=== PATIENT | female | born 1960 | race Caucasian/White ===

== ENCOUNTER 2018-10-15 12:22 | Inpatient (IN) | payer OTHER, SELFPAY ==
[2018-10-02 12:28] VITALS: BMI 29.8
[2018-10-15] MEDS: LACTATED RINGERS 1,000 ML 42 ML IV (12:45)
[2018-10-15 12:53] VITALS: BP 103/65; PULSE 59; RESP 16; TEMP 36.4; O2SAT 100; BMI 28.2
--- NOTE | 2018-10-15 13:20 | SUR.PREOP ---
pt reports has numbness and tingling in the left hand-chronic.
--- NOTE | 2018-10-15 15:14 | SUR.PREOP ---
pt discharge to home at this time. per dr. Thacker surgery will be rescheduled for another time when pacemaker rep available. iv dc'd and intact. pt tolerated well. per Dr. Thacker, pt instructed ok to resume warfarin and plavix this evening. pt ambulated out of facility with family in stable condition.
--- NOTE | 2018-10-15 15:34 | P.PN_ITS ---
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 I discussed with patient and she understands. She will be discharged today and re-scheduled for 10/28/18.
--- NOTE | 2018-10-15 16:14 | SUR.PHASEII ---
Time out per Brittany Lofton RN
== END 2018-10-15 15:14 | disposition home or self-care (01) | DRG 951 ==
PROVIDERS: Admitting Provider Orthopaedic Surgery Orthopaedic Surgery of the Spine; PCP Nurse Practitioner Family; Visit Provider Orthopaedic Surgery Orthopaedic Surgery of the Spine
DX: Z53.8 Procedure and treatment not carried out for other reasons (principal); M48.02 Spinal stenosis, cervical region

== ENCOUNTER 2018-10-28 08:48 | Inpatient (IN) | payer OTHER, MEDICAID, SELFPAY ==
[2018-10-21 12:21] VITALS: BMI 29.8
[2018-10-28] VITALS (19 sets, daily range): BP systolic 106–153; BP diastolic 58–91; PULSE 56–79; RESP 10–92; TEMP 36.3–36.8; O2SAT 92–100; BMI 29.9
--- NOTE | 2018-10-28 | DI.RAD.S_ITS ---
PROCEDURE: XR CERVICAL SPINE 2V OR 3V INDICATIONS: C5-6, C6-7 ACDF TECHNIQUE: 3 fluoroscopic intraoperative view(s) of the cervical spine were acquired. COMPARISON: [facility], CT, CT CERVICAL SPINE WITHOUT CONTRAST, 05/29/2017, 10:12. [facility], CR, XR CERVICAL SPINE 2 OR 3 VIEWS, 07/18/2018, 13:56. [facility], RF, CERVICAL FACET, 02/05/2018, 8:20. FINDINGS: Bones: C5-C7 ACDF is in the expected position. No fracture or dislocation seen. Post median sternotomy. Soft tissues: Soft tissues are unremarkable. Endotracheal tube is in place. Left cardiac pacemaker and right apex surgical clip. IMPRESSION: Expected appearance of the C5-C7 ACDF. Dictated by: Wilder Mike M.D. on 10/28/2018 at 15:50 Approved by: Wilder Mike M.D. on 10/28/2018 at 15:56
[2018-10-28 11:10] LABS: INR 1.2 (0.9-1.3); Prothrombin Time 13.5 SECONDS (10.1-12.7)
[2018-10-28] MEDS: LACTATED RINGERS 1,000 ML 42 ML IV ×2 (11:55→15:43)
--- NOTE | 2018-10-28 12:05 | PM.PREOP ---
Pre-operative Note Interval Note History & Physical reviewed/Exam performed by Physician: Yes Changes to H&P: No
[2018-10-28] MEDS: CEFAZOLIN 2 GM/100 ML FROZ.PIGGY IV ×2 (13:06→21:27)
--- NOTE | 2018-10-28 13:55 | SUR.OPER ---
Supine on padded OR bed, head on pillow, arms padded and tucked at side, legs uncrossed, safety belt at thigh, tape over blanket over lower legs . tape from shoulders to foot of bed to provide traction to lower shoulders away from neck. gel doughnut under neck
--- NOTE | 2018-10-28 15:01 | PM.OP.1 ---
Operative Date/Time/Diagnoses Date of procedure: 10/28/18 Time of procedure: 13:01 Pre-op diagnosis: 1. C5-6, C6-7 spinal stenosis 2. C5-6, C6-7 spondylosis with radiculopathy Post-op diagnosis: same Procedure & Clinicians Procedure: 1. C5-6 C6-7 anterior cervical diskectomy and fusion 2. C5-6 C6-7 anterior interbody cage placement 3. C5-6 C6-7 anterior instrumentation with plate and screw placement in C5-C6 and C7 vertebrae 4. Utilization of microsurgical technique and operating microscope Same procedure as scheduled: Yes Indications: Patient has been having chronic neck pain and worsening cervical radiculopathy. Patient failed multiple conservative management with worsening pain weakness and numbness in her upper extremity. Patient has been having difficulty performing activity of daily living. After discussing risks benefits of treatment options, patient elected proceed with surgery. Surgeon: Narcisa Thacker Water Taxi Boat Mate: Arlene Clark'Brien Click Yes if Unassisted: No Anesthesia Type: General Operative Notes Closure Type: primary Specimen(s): none sent Prosthetic devices, grafts, tissues, transplants, or devices: Globus extend plate, PEEK cages Estimated Blood Loss (mL): 20 Blood products transfused: none Procedure in detail: Patient was seen in the preoperative area. Risks and benefits of the surgery was discussed with the patient. Operative consent was obtained and placed in the chart. Patient was then taken to the operative room. Prophylactic antibiotic was given less than 0.5 hr prior to skin incision. General anesthesia was administered. Patient was placed into a supine position on her radiolucent table. Bilateral shoulders were taped down to allow proper C-arm imaging. Anterior cervical area was prepped and draped in a sterile fashion. Time-out was performed at this time. Using lateral C-arm imaging, the level between C5 and C7 was identified and marked on patient's neck. A oblique incision from midline towards medial border of sternocleidomastoid muscle was made. The platysma muscle was incised in line with skin incision. Metzenbaum scissor was used to develop the plane between the medial border of sternocleidomastoid d and the strap muscles medially. The carotid sheath and its contents were identified and protected behind the hand-held retractor during the entire case. The plane between the carotid sheath and strap muscles was developed with Metzenbaum scissors. Dissection was made down to the level of the anterior cervical fascia. Longus colli muscle was incised on the anterior aspect of vertebral bodies bilaterally from C5-C7. Spinal needle was placed into the C5-6 disc space and confirmed with lateral C-arm imaging. Using microsurgical technique and operative microscope, anterior cervical diskectomy was performed at C5-6 and C6-7 level. This was done by removing the disc material, removing the anterior and posterior osteophytes posterior longitudinal ligaments along with performing bilateral foraminotomies at both levels. Patient was found to have severe central and foraminal stenosis at both levels. Patient's stenosis was fully decompressed after decompression was completed. After the diskectomy was completed, 2 anterior interbody cages were obtained. The cages were packed with globus via cell bone grafting material. One cage each along with the bone grafting material was then packed into the interbody spaces from C5-C7 with one cage into each interbody level. After the cages were placed, the anterior cervical plate was stabilized to the C5-C7 vertebrae using 2 screws at each each level. Total 6 screws were placed. After confirming placement of the hardware with AP and lateral C-arm imaging, the screws were locked into the plate using the locking mechanism and torque limiting screwdriver. After the hardware was placed and confirmed with AP and lateral C-arm imaging, the wound was irrigated with sterile normal saline. The platysma muscle and the subcutaneous tissue was closed with 2-0 Vicryl. The skin was closed with 4-0Monocryl and Steri-Strips. Patient tolerated the procedure well. Patient was transferred recovery room in stable condition. There were no complications. Complications: none Condition: stable Disposition: PACU Plan for aftercare: Admit to inpatient hospital
--- NOTE | 2018-10-28 15:04 | P.OP_ITS ---
Operative Date/Time/Diagnoses Date of procedure: 10/28/18 Time of procedure: 13:01 Pre-op diagnosis: 1. C5-6, C6-7 spinal stenosis 2. C5-6, C6-7 spondylosis with radiculopathy Post-op diagnosis: same Procedure & Clinicians Procedure: 1. C5-6 C6-7 anterior cervical diskectomy and fusion 2. C5-6 C6-7 anterior interbody cage placement 3. C5-6 C6-7 anterior instrumentation with plate and screw placement in C5-C6 and C7 vertebrae 4. Utilization of microsurgical technique and operating microscope Same procedure as scheduled: Yes Indications: Patient has been having chronic neck pain and worsening cervical radiculopathy. Patient failed multiple conservative management with worsening pain weakness and numbness in her upper extremity. Patient has been having difficulty performing activity of daily living. After discussing risks benefits of treatment options, patient elected proceed with surgery. Surgeon: Narcisa Thacker Respiratory Practitioner: Arlene Clark'Brien Click Yes if Unassisted: No Anesthesia Type: General Operative Notes Closure Type: primary Specimen(s): none sent Prosthetic devices, grafts, tissues, transplants, or devices: Globus extend plate, PEEK cages Estimated Blood Loss (mL): 20 Blood products transfused: none Procedure in detail: Patient was seen in the preoperative area. Risks and benefits of the surgery was discussed with the patient. Operative consent was obtained and placed in the chart. Patient was then taken to the operative room. Prophylactic antibiotic was given less than 0.5 hr prior to skin incision. General anesthesia was administered. Patient was placed into a supine position on her radiolucent table. Bilateral shoulders were taped down to allow proper C- arm imaging. Anterior cervical area was prepped and draped in a sterile fashion. Time-out was performed at this time. Using lateral C-arm imaging, the level between C5 and C7 was identified and marked on patient's neck. A oblique incision from midline towards medial border of sternocleidomastoid muscle was made. The platysma muscle was incised in line with skin incision. Metzenbaum scissor was used to develop the plane between the medial border of sternocleidomastoid d and the strap muscles medially. The carotid sheath and its contents were identified and protected behind the hand- held retractor during the entire case. The plane between the carotid sheath and strap muscles was developed with Metzenbaum scissors. Dissection was made down to the level of the anterior cervical fascia. Longus colli muscle was incised on the anterior aspect of vertebral bodies bilaterally from C5-C7. Spinal needle was placed into the C5-6 disc space and confirmed with lateral C-arm imaging. Using microsurgical technique and operative microscope, anterior cervical diskectomy was performed at C5-6 and C6-7 level. This was done by removing the disc material, removing the anterior and posterior osteophytes posterior longitudinal ligaments along with performing bilateral foraminotomies at both levels. Patient was found to have severe central and foraminal stenosis at both levels. Patient's stenosis was fully decompressed after decompression was completed. After the diskectomy was completed, 2 anterior interbody cages were obtained. The cages were packed with globus via cell bone grafting material. One cage each along with the bone grafting material was then packed into the interbody spaces from C5-C7 with one cage into each interbody level. After the cages were placed, the anterior cervical plate was stabilized to the C5-C7 vertebrae using 2 screws at each each level. Total 6 screws were placed. After confirming placement of the hardware with AP and lateral C-arm imaging, the screws were locked into the plate using the locking mechanism and torque limiting screwdriver. After the hardware was placed and confirmed with AP and lateral C-arm imaging, the wound was irrigated with sterile normal saline. The platysma muscle and the subcutaneous tissue was closed with 2-0 Vicryl. The skin was closed with 4- 0Monocryl and Steri-Strips. Patient tolerated the procedure well. Patient was transferred recovery room in stable condition. There were no complications. Complications: none Condition: stable Disposition: PACU Plan for aftercare: Admit to inpatient hospital
[2018-10-28] MEDS: ONDANSETRON 4 MG/2 ML INJ IV ×2 (15:24→19:51)
[2018-10-28] MEDS: fentaNYL 100 MCG/2 ML INJ 50 MCG IV (15:35)
[2018-10-28] MEDS: LORazepam 2 MG/ML INJ 0.5 MG IV (15:41)
--- NOTE | 2018-10-28 15:47 | SUR.PHASEI ---
Assumed care, patient sleeping, calm, arouses easily to voice.
--- NOTE | 2018-10-28 15:53 | SUR.PHASEI ---
Sleeping comfortably, no evidence of pain. Resp even and regular.
--- NOTE | 2018-10-28 15:55 | SUR.PHASEI ---
VS entered for Rola Sherwood RN, Did not enter assessment items as i was not providing care at the earlier times.
--- NOTE | 2018-10-28 16:05 | SUR.PHASEI ---
Returned care to Carrie Sherwood RN
--- NOTE | 2018-10-28 17:02 | SUR.PHASEI ---
PACU post op transfer note: VSS, O2 sat WNL on 2 L/DIETARY SERVICE AIDE. Patient drowsy but easily arousable by normal voice and responds appropriately to verbal commands. Neuro checks WNL. Pain medication and antiemetic effective. Patient stated that she has some relief. Mild nausea and pain to left shoulder. Repositioned for comfort. Dressing to neck CDI. Soft neck collar in place. IV patent. Stable for transfer to IP room 228. Telephone report given to Karina Nix RN.
--- NOTE | 2018-10-28 17:04 | PC.NURSE ---
Addendum entered by Adeline Nix R.N. 10/28/18 21:34: Pt dozing since last note. Awoke to voice. VS are stable. Denies current nausea, is clammy, c/o feeling really hot. fan provided. PO cardiac meds given with sip of nav oliver (stool softeners held due to problems with nausea/dry heaves), patient took pills and 5 minutes later had small amt of emesis but pills not observed in emesis bag or toilet. Addendum entered by Adeline Nix R.N. 10/28/18 18:11: Patient awoke moaning out loudly, yelling help me. She reported pain 10/10 to shoulders and then said I'm going to be sick, dry heaved a few times but no emesis. Also said I'm burning up! I removed her blanket, sheet covering her. Cold washrag to forehead, Dilaudid 0.5 mg IV given, within 10 minutes she became calm & started dozing again, reporting pain so much better, and thank you so much but falls asleep before can rate on number scale. Ice packs placed to shoulders. BP 135/68, HR 65, 2L O2 sat 95-96% while sleeping. Neck drsg remains CDI. Fall precautions in place, alarm active, call button in reach. Original Note: Admit note: Libra brought from PACU, skin pale, she is sleeping, awakes to voice, answers few yes/no questions then immediately falls back asleep. When awake she reports nausea, emesis bag in her hand, suction set up. BRIDGE CONSTRUCTION INSPECTOR reports giving antiemetics previous to transfer. VS are stable, 2L O2 via NC 95% Anterior neck gauze drsg is CDI, soft collar in place. HOB at 30 degrees. Bilateral foot SCD's placed. Nurse call button & phone at her side but she is much too drowsy to give teaching & orient her to room at this point. Will continue to monitor & reassess.
[2018-10-28] MEDS: HYDROMORPHONE 1 MG INJ 0.5 MG IV (17:42)
[2018-10-28] MEDS: SODIUM CHLORIDE 0.9% 1,000 ML 100 ML IV (17:48)
[2018-10-28] MEDS: LISINOPRIL 20 MG TABLET PO (21:22)
[2018-10-28] MEDS: METOPROLOL ER 50 MG TABLET PO (21:24)
[2018-10-28] MEDS: ISOSORBIDE MONONITRATE ER 30 MG TABLET 120 MG PO (21:24)
[2018-10-29 01:06] VITALS: BP 153/72; PULSE 62
[2018-10-29] MEDS: SODIUM CHLORIDE 0.9% 1,000 ML 100 ML IV (04:43)
[2018-10-29] MEDS: CEFAZOLIN 2 GM/100 ML FROZ.PIGGY IV (04:44)
[2018-10-29] MEDS: hydrOXYzine pamoate 25 MG CAPSULE PO (04:47)
[2018-10-29 06:00] VITALS: BP 119/63; PULSE 59; RESP 16; TEMP 36.7; O2SAT 99
[2018-10-29 06:02] LABS: Hematocrit 37.6 % (36-46); Hemoglobin 12.4 g/dL (12.0-16.0)
[2018-10-29] MEDS: HYDROCODONE/ACET 5/325 TABLET 2 TAB PO (06:19)
--- NOTE | 2018-10-29 08:13 | PM.PNPO.1 ---
Subjective Date Patient Seen: 10/29/18 Time Patient Seen: 08:13 Interval history: POD 1 s/p C5-[address] Thacker. Patients pain well controlled with Vicodin and Vistaril. No difficulty swallowing. She has not tried eating breakfast yet. Complaints of posterior neck pain. No numbness or tingling going down the arms. Exam Vital Signs (past 8 hours): - 10/29/18 01:06 10/29/18 06:00 Temperature 98.0 F Pulse Rate 62 59 L Respiratory Rate 16 Blood Pressure 153/72 H 119/63 Pulse Oximetry 99 Oxygen Delivery Method Nasal Cannula Oxygen Flow Rate 0 Narrative Exam Narrative: Patient sitting up in bed in no acute distress. She is alert and oriented x3. No hoarseness. Procedures Analyst strength strong and equal. Radial pulses symmetrical. Sensation intact to light touch her bra or upper extremities. Calves are soft, compressible, nontender bilaterally. Objective Labs Result Diagrams: 10/29/18 05:33 Labs: Laboratory Results - last 24 hr 10/28/18 10/29/18 10:50 05:33 Hgb 12.4 Hct 37.6 PT 13.5 H INR 1.2 Assessment & Plan Post-op Postoperative Procedures Operation Date: 10/28/18 11:15 Actual Procedures Side Surgeon p c5-6, c6-7 acdf with anterior instrumentation Narcisa Thacker MD Patient will mobilize with physical therapy today. Continue current pain control. Patient is mobilizing safely and pain adequately controlled she will be able to go home tonight. Quality VTE Deep Vein Thrombosis/Pulmonary Embolism Present on Admission: No
[2018-10-29 08:41] VITALS: BP 122/70; PULSE 56
[2018-10-29] MEDS: MULTIVITAMIN 1 TABLET 1 TAB PO (08:41)
[2018-10-29] MEDS: LISINOPRIL 20 MG TABLET PO (08:41)
[2018-10-29] MEDS: DOCUSATE 100 MG CAPSULE PO (08:41)
[2018-10-29 08:42] VITALS: BP 122/70; PULSE 56
[2018-10-29] MEDS: POTASSIUM CHLORIDE 10 MEQ TAB PO (08:42)
[2018-10-29] MEDS: SPIRONOLACTONE 25 MG TABLET PO (08:42)
[2018-10-29] MEDS: FUROSEMIDE 40 MG TABLET 80 MG PO (08:42)
[2018-10-29] MEDS: SODIUM CHLORIDE 0.9% FLUSH 10 ML IV (08:42)
[2018-10-29 09:05] VITALS: BP 107/67; PULSE 60; RESP 16; TEMP 36.2; O2SAT 98
--- NOTE | 2018-10-29 10:14 | OT.IP.EVAL ---
Current Diagnoses Other spondylosis with radiculopathy, cervical region (10/28/18) Spinal stenosis, cervical region (10/28/18) Surgery Performed Operation Date: 10/28/18 11:15 Actual Procedures p c5-6, c6-7 acdf with anterior instrumentation - Narcisa Thacker MD Past Medical History (Last Updated 10/02/18 @ 13:34 by Pam Cortes, RN) Angina pectoris (Acute) Anxiety about health (Acute) Arrhythmia (Acute) Arthritis (Acute) Back pain (Acute) CAD (coronary artery disease) (Acute) Cardiomyopathy (Acute) Chronic a-fib (Acute) Chronic left ventricular systolic dysfunction (Acute) Depression (Acute) Easy bruisability (Acute) Former smoker (Acute) GERD (gastroesophageal reflux disease) (Acute) H. pylori infection (Acute) HLD (hyperlipidemia) (Acute) HTN (hypertension) (Acute) ICD (implantable cardioverter-defibrillator) in place (Acute ~10/2000) Memory loss, short term (Acute) Myocardial infarction (Acute ~03/1998) Myocardial infarction (Acute ~10/1989) Neck pain (Acute) RLS (restless legs syndrome) (Acute) Sleep apnea (Acute) Surgical History (Last Updated 10/02/18 @ 13:34 by Pam Cortes, RN) History of atrioventricular lolita ablation (Acute ~2013) Hx of CABG (Acute ~07/1998) Hx of appendectomy (Acute) Hx of cardiac catheterization (Acute) Hx of heart artery stent (Acute) Hx of oophorectomy (Acute) Hx of repair of right rotator cuff (Acute ~06/2011) S/P CABG x 2 (Acute ~10/1989) Status post mitral valve annuloplasty (Acute ~07/1998) Occupational Therapy Inpatient Evaluation/Re-Eval M1 PT/OT-IP Prior Functional Status Start: 10/29/18 09:41 Freq: NEEDED Status: Active Protocol: Document 10/29/18 09:42 [facility] (Rec: 10/29/18 10:14 [facility] [id number]) Medical Review Prior Functional Status Medical History Reviewed Yes Diet/Fluid Consistency Regular Thin Liquids Communication Independent Mobility and Gait Independent with no devices. Activities of Daily Living and IADL's Completely independent with ADl's except to indio bra and heavy lifting for IADl needs, can assist. Prior Functional Level (Other details) Pt does not drive as car broken per pt. Pt's grandson lives outside on in a trailer and can assist if needed as well. Pt's has COPD but per pt still able to provide assist to pt. Social History Household Members spouse children Living Arrangements Mobile home Number of Floors (Floors) One Floor Number of Stairs To Enter/Railing? 4 steps with bilateral hand rails to porch and one step to enter the mobile home. Home Environment Standard Height Toilet Tub/Shower Home Equipment Straight Cane M2 OT-IP Current Condition Start: 10/29/18 09:41 Freq: Status: Active Protocol: Document 10/29/18 09:42 [facility] (Rec: 10/29/18 10:14 [facility] [id number]) Occupational Therapy Current Condition Current Condition Evaluation Date 10/29/18 Treatment Diagnosis C5-6. C6-7 ACDF, weakness Diagnosis Onset Date 10/28/18 Post Operative Precautions Cervical Spine Precautions Soft Collar for Comfort No Heavy Lifting Log Roll M3 OT- IP Subjective and Pain Start: 10/29/18 09:41 Freq: Status: Active Protocol: Document 10/29/18 09:42 [facility] (Rec: 10/29/18 10:14 [facility] [id number]) OT- Subjective Occupational Therapy Visit Type Type Initial Evaluation Visit Start Time 08:55 Visit Stop Time 09:35 Total Visit Minutes 40 Occupational Therapy Visit Comments Patient Comments Pt wanting to shower and feels ready to go home. Patient/Caregiver Goals To go home. OT Pain Assessment Pain When Pain Assessed At Rest Pain Present Pain Present Pain Reported Location Neck Intensity 2 Scale Used Numeric (1 - 10) M4 OT- IP ADL's Start: 10/29/18 09:41 Freq: Status: Active Protocol: Document 10/29/18 09:42 [facility] (Rec: 10/29/18 10:14 [facility] [id number]) OT [id number] Comments OT Self-Feeding Comments Pt states initially had difficulty to swallow but doing better now, ENVIRONMENTAL SCIENCE PROFESSOR to assess around lunch time. Able to educate pt to eat softer food initially, eat upright, and take her time. OT ADL-Dressing General Eval Upper Body Dressing Ability Standby Assistance Lower Body Dressing Ability Independent Comments OT Dressing Comments Pt after education able to indio/doff soft collar. Increased time and sitting for LB dressing needs with good safety. OT ADL-Toileting General Evaluation Toileting Ability Independent OT ADL-Bathing Bathing Type Bathing Type Shower General Evaluation Bathing Ability Standby Assistance Areas Needing Assistance Retrieving/Setting Up Items Devices Bathing Equipment Shower Chair with Arms Grab Bars Comments OT Bathing Comments Pt able to stand for most of shower however needing cues to sit to shower chair to wash her legs/foot as initially trying to stand on one leg, unsteady and needing to hold to grab bar for balance. M5 OT- IP IADL's Start: 10/29/18 09:41 Freq: Status: Active Protocol: Document 10/29/18 09:42 [facility] (Rec: 10/29/18 10:14 [facility] [id number]) OT-Instrumental Activities of Daily Living Home Safety Awareness Awareness of Need for Assistance at Home Good Awareness Ability to Problem Solve Emergency Able to Problem Solve Situations Home Safety Comments Pt's to assist with IADl needs. Medication Management Medication Management No Deficits Identified Money Management Money Management No Deficits Identified Meal Preparation Meal Preparation Comments Pt's to assist as needed. Service Station Manager Service Station Manager Caregiver Provides Assist Driving Driving Caregiver Provides Assist M6 OT- IP Functional Cognition Start: 10/29/18 09:41 Freq: Status: Active Protocol: Document 10/29/18 09:42 [facility] (Rec: 10/29/18 10:14 [facility] [id number]) Cognitive Factors Limiting Selfcare Function Cognitive Ability Level of Alertness Alert Patient Orientation Name Age Birthday Month Date Year Day of Week Place Situation Attention Span Ability Capable of Focused Attention Ability to Follow Commands Able to Follow Multi-Step Commands Memory Description No Deficits Noted Safety Awareness Underestimates Need for Assistance Problem Solving Ability No deficits Noted Cognitive Comments Cognitive Assessment Comments Pt needing reminders to safety due to a little unsteady on her feet. OT- Vision and Hearing OT- Hearing Assessment OT- Hearing Assessment WFL OT- Vision Assessment Visual Acuity Glasses For Reading M7 OT- IP Mobility and Balance Start: 10/29/18 09:41 Freq: Status: Active Protocol: Document 10/29/18 09:42 [facility] (Rec: 10/29/18 10:14 [facility] [id number]) OT- Bed Mobility Assessment Rolling Level of Assistance Independent Supine to Sit Supine to Sit Assist Independent Sit to Supine Sit to Supine Assist Independent Scooting Scooting to Edge of Bed Independent Scooting Up and Down in Bed Independent OT-Transfer Assessment Sit to and From Stand Sit to and from Stand Standby Assistance Transfers Transfer Ability Standby Assistance Contact Guard Assistance Technique Transfer Destination Bed Chair Shower Stall Toilet Devices Transfer Assistive Devices None Gait Belt Front Wheeled Walker Comments Mobility Comments CGA without device as a little unsteady, able to use FWW with SBA. PT to eval pt for best appropriate device to use at home as pt has a cane at home. OT- Gait Assessment Gait Gait Assistance Required: Standby Assistance Assistive Devices Assistive Device Gait Belt Front Wheeled Walker OT- Balance Assessment Sitting Balance and Reactions Static Sitting Balance Ability Normal Dynamic Sitting Balance Ability Normal Standing Balance and Reactions Static Standing Balance Ability Good Dynamic Standing Balance Ability Fair M8 OT- IP Objective Assessments Start: 10/29/18 09:41 Freq: Status: Active Protocol: Document 10/29/18 09:42 [facility] (Rec: 10/29/18 10:14 [facility] [id number]) OT Gross Range of Motion Upper Extremity Range of Motion Assessment Within Functional Limits OT Strength Upper Extremity Strength Assessment Within Functional Limits Comments Strength Comments BUE 4/5 OT-Muscle Tone Assessment Muscle Tone WNL Yes M9 OT- IP Assessment and Plan Start: 10/29/18 09:41 Freq: Status: Active Protocol: Document 10/29/18 09:42 [facility] (Rec: 10/29/18 10:14 [facility] [id number]) OT Summary Assessment and Plan Potential Rehabilitation Potential Excellent Analytic Complexity at Evaluation Low Summary OT Impairments Pain Balance Functional Mobility Progress Towards Goals Progressing Toward Goals Assessment Summary Pt low complexity and a little unsteady on her feet at this time, but looking to go home with . Pt has supportive and grandson to assist. ENVIRONMENTAL SCIENCE PROFESSOR to see pt as earlier had difficulty to swallow and PT eval for most appropriate device. Pt looking to go home today. Goals Patient/Caregiver Education Goal Demonstrate Post-Op Precautions Days to Meet Goals 1 Frequency of Treatment Frequency Of Treatment Once a Day Treatment Plan OT Treatment Plan Discharge Planning Discharge Recommendations OT Discharge Recommendations Home with Assistance
--- NOTE | 2018-10-29 10:27 | SLP.IPNOTE ---
Swallow screen performed. No overt s/sx of aspiration observed. Pt has mild discomfort, normal for post ACDF surgery. No dysphagia treatment warranted at this time. Education was provided to pt orally and in writing RE potential dysphagia and dysphonia symptoms, strategies and indications to seek EXPLOSIVE ORDNANCE DISPOSAL MANAGER consultation. Pt verbalized understanding.
--- NOTE | 2018-10-29 11:45 | PT.IIE ---
Current Diagnoses Other spondylosis with radiculopathy, cervical region (10/28/18) Spinal stenosis, cervical region (10/28/18) Surgery Performed Operation Date: 10/28/18 11:15 Actual Procedures p c5-6, c6-7 acdf with anterior instrumentation - Narcisa Thacker MD Surgical History (Last Updated 10/02/18 @ 13:34 by Pam Cortes, RN) History of atrioventricular lolita ablation (Acute ~2013) Hx of CABG (Acute ~07/1998) Hx of appendectomy (Acute) Hx of cardiac catheterization (Acute) Hx of heart artery stent (Acute) Hx of oophorectomy (Acute) Hx of repair of right rotator cuff (Acute ~06/2011) S/P CABG x 2 (Acute ~10/1989) Status post mitral valve annuloplasty (Acute ~07/1998) Medical History (Last Updated 10/02/18 @ 13:34 by Pam Cortes RN) Angina pectoris (Acute) Anxiety about health (Acute) Arrhythmia (Acute) Arthritis (Acute) Back pain (Acute) CAD (coronary artery disease) (Acute) Cardiomyopathy (Acute) Chronic a-fib (Acute) Chronic left ventricular systolic dysfunction (Acute) Depression (Acute) Easy bruisability (Acute) Former smoker (Acute) GERD (gastroesophageal reflux disease) (Acute) H. pylori infection (Acute) HLD (hyperlipidemia) (Acute) HTN (hypertension) (Acute) ICD (implantable cardioverter-defibrillator) in place (Acute ~10/2000) Memory loss, short term (Acute) Myocardial infarction (Acute ~03/1998) Myocardial infarction (Acute ~10/1989) Neck pain (Acute) RLS (restless legs syndrome) (Acute) Sleep apnea (Acute) Physical Therapy Inpatient Evaluation/Re-Eval M1 PT/OT-IP Prior Functional Status Start: 10/29/18 09:41 Freq: NEEDED Status: Active Protocol: Document 10/29/18 09:42 [facility] (Rec: 10/29/18 10:14 [facility]] [id number]) Medical Review Prior Functional Status Medical History Reviewed Yes Diet/Fluid Consistency Regular Thin Liquids Communication Independent Mobility and Gait Independent with no devices. Activities of Daily Living and IADL's Completely independent with ADl's except to indio bra and heavy lifting for IADl needs, can assist. Prior Functional Level (Other details) Pt does not drive as car broken per pt. Pt's granson lives outside on in a trailer and can assist if needed as well. Pt's has COPD but per pt still able to provide assist to pt. Social History Household Members spouse children Living Arrangements Mobile home Number of Floors (Floors) One Floor Number of Stairs To Enter/Railing? 4 steps with bilateral hand rails to porch and one step to enter the mobile home. Home Environment Standard Height Toilet Tub/Shower Home Equipment Straight Cane M1 PT/OT-IP Prior Functional Status Start: 10/29/18 12:55 Freq: NEEDED Status: Active Protocol: Document 10/29/18 11:45 AB (Rec: 10/29/18 13:06 AB [id number]) Medical Review Prior Functional Status Medical History Reviewed Yes Communication able to make needs known Mobility and Gait pt stated that she is independent with all mobilities and ambulation without AD but occasionally uses a SPC due to LBP. Activities of Daily Living and IADL's per OT's note: Completely independent with ADl's except to indio bra and heavy lifting for IADl needs, can assist. Social History Household Members spouse Living Arrangements Mobile home Number of Stairs To Enter/Railing? 4 steps with B rail to porch + 1 step to enter the house Home Environment Standard Height Toilet Tub/Shower Home Equipment Straight Cane Hand Held Shower Additional Social History Comment pt stated that her grandson lives in there property and can assist her if needed. stated that she has a grab bar at home but needs to be installed. M2 PT-IP Current Condition Start: 10/29/18 12:55 Freq: NEEDED Status: Active Protocol: Document 10/29/18 11:45 AB (Rec: 10/29/18 13:06 AB [id number]) Physical Therapy Current Condition Current Condition Evaluation Date 10/29/18 Treatment Diagnosis C5-6, 6-7 ACDF; difficulty in walking Onset Date 10/28/18 Precautions Cervical Spine Precautions Soft Collar for Comfort No Heavy Lifting Log Roll M3 PT-IP Subjective Start: 10/29/18 12:55 Freq: NEEDED Status: Active Protocol: Document 10/29/18 11:45 AB (Rec: 10/29/18 13:06 AB [id number]) Subjective Physical Therapy Visit Type Type Initial Evaluation Visit Start Time 11:45 Visit Stop Time 12:04 Total Visit Minutes 19 Number of CURATOR HERBARIUM Visits 0 Physical Therapy Visit Comments Patient Comments pt agreeable to do PT Therapy Pain Assessment Pain When Pain Assessed At Rest Pain Present Pain Present Pain Reported Location Neck Intensity 2 Scale Used Numeric (1 - 10) Pain Management Techniques Apply Cold Timing of Activity with Medications M4 PT-IP Mobility and Gait Start: 10/29/18 12:55 Freq: NEEDED Status: Active Protocol: Document 10/29/18 11:45 AB (Rec: 10/29/18 13:06 AB [id number]) PT-Bed Mobility Assessment Rolling Type of Rolling Log Rolling Level of Assist Standby Assistance Supine to Sit Supine to Sit Standby Assistance Sit to Supine Sit to Supine Standby Assistance Scooting Scooting to Edge of Bed Standby Assistance PT-Transfer Assessment Sit to and From Stand Sit to and from Stand Standby Assistance Equipment Transfer Assistive Device None Gait Belt Transfers Transfer Destination Bed Chair Transfer Technique pt ambulated without AD Transfer Ability Level of Assist Standby Assistance Gait Assessment Gait Gait Assistance Required: Standby Assistance Distance (Feet) 300 Able to Maintain Weight Bearing Status Yes During Gait Assistive Devices Assistive Device Gait Belt Orthotic/Prosthetic Devices or Brace: No Gait Deviations General Gait Pattern Antalgic Factors Limiting Gait Function Factors Limiting Gait Function Limited Range of Motion Pain Poor Balance Comments Gait Comments pt ambulated towards the stairs and back without AD SBA . (+) LOB x 1 with recovery. educated pt with safety and use of SPC for uneven/long distance mobiltiy and pt agreed. pt stated that she has been using her SPC on and off depending on her LBP. Stair Climbing Assessment Evaluation Level of Assist On Stairs Standby Assistance Devices Stair Climbing Assistive Devices None Left Railing Right Railing Technique/Endurance Stair Climbing Direction Ascend and Descend Stair Climbing Technique Step Over Step Number of Steps Climbed 3 Query Text: Stair Climbing Set # Repetitions (reps) 2 Comments Stair Climbing Comments pt completed up/down steps using bilateral rails SBA and also completed up/down one step without rails SBA PT-Balance Assessment Sitting Balance and Reactions Static Sitting Balance Ability Normal Dynamic Sitting Balance Ability Normal Standing Balance and Reactions Static Standing Balance Ability Good Dynamic Standing Balance Ability Fair Device Used without AD M5 PT-IP Objective Assessments Start: 10/29/18 12:55 Freq: NEEDED Status: Active Protocol: Document 10/29/18 11:45 AB (Rec: 10/29/18 13:06 AB [id number]) Orientation Orientation/Cognition Level of Alertness Alert Language Function Ability No Deficits Noted Safety Awareness Understands Safety Issues Memory Description No Deficits Noted Gross Range of Motion Lower Extremity ROM Assessment Within Functional Limits Strength Lower Extremity Strength Assessment Within Functional Limits Coordination Assessment Gross Coordination Gross Coordination WNL Sensation Assessment Sensation Gross Sensation WNL Muscle Tone Muscle Tone WNL Yes M6 PT-IP Treatment Start: 10/29/18 12:55 Freq: NEEDED Status: Active Protocol: Document 10/29/18 11:45 AB (Rec: 10/29/18 13:06 AB [id number]) Physical Therapy Treatment Education Education Provided Precautions Weight Bearing Status Post-Op Packet Safety M7 PT-IP Assessment and Plan Start: 10/29/18 12:55 Freq: NEEDED Status: Active Protocol: Document 10/29/18 11:45 AB (Rec: 10/29/18 13:06 AB [id number]) PT Summary Assessment and Plan Potential Rehabilitation Potential Good Status of Condition at Evaluation Stable Summary Impairments Pain ROM Strength Balance Bed Mobility Transfers Gait Activity Tolerance Assessment Summary Pt requiring SBA with mobility and plans to go home today with spouse to assist her. pt may go home when medically stable. Goals Bed Mobility Goal Independent Transfer Goal Independent Gait Goal Independent Gait Distance 300 Other Goals up/down 4 steps B rails mod I; up/down 1 step mod I Frequency of Treatment Frequency Of Treatment Once a Day Treatment Plan Physical Therapy Treatment Plan Bed Mobility Training Transfer Training Gait Training Therapeutic Exercise Balance Retraining Post Op Education Discharge Planning Hot or Cold Pack Neuromuscular Re-ed Coordination Retraining Manual Therapy Recommendations To Nursing Amount of Assist Needed Standby Assistance Discharge Recommendations PT Discharge Recommendations Home with Assistance
[2018-10-29 12:00] VITALS: BP 119/66; PULSE 60; RESP 16; TEMP 36.9; O2SAT 100
--- NOTE | 2018-10-29 13:12 | CM.DANOTE ---
DCP/Assessment: Reviewed chart. Patient is a 57yr old female admitted to [facility] for [facility] with Dr. Thacker on 10-28-18. PCP is Josselyn Fleming. Primary payor is 1)[facility]. Attempted to see patient in room. Per RN patient just discharged from [facility] Patient cleared by therapy and discharged by Orthopedic team. No identified d/c planning needs. P: Home today. ROB Klein Discharge Planning/Care Management CM Discharge Assessment Start: 10/29/18 13:09 Freq: Status: Active Protocol: Document 10/29/18 13:09 KJS (Rec: 10/29/18 13:12 KJS [id number]) Discharge Planning Assessment Assigned Weighter ROB Klein Contact Information Khanh Jolly # [phone] Advance Directives? No: Declines further information History Provided By Patient Medical Record Prior Living Arrangements Mobile home Household Members spouse Type of transporation used prior to Drives own vehicle admit Independent with ADL's Yes Is patient alert and oriented? Yes Caregiver for Another No Barriers to Discharge No Discharge Plan Home Review Status In Process Next Review Type Continued Stay Review Pre-Anesthesia Assessment Start: 10/21/18 12:21 Freq: Status: Complete Protocol: Document 10/21/18 12:21 CAB (Rec: 10/21/18 12:32 CAB [id number]) Pre-Anesthesia Assessment PAC Comment Previous surgery for 10/15/18 cancelled r/t no pacemaker form returned by Cardiology. Pacemaker form has been received. Pacer rep is required and has been notified of new surgery date/time Patient Also Known As (UMA) Libra Patient Information Reviewed Via Chart Review Diagnostic Results BMP/CMP CBC EKG Comment Outside labs/EKG scanned to record Primary Care Provider Josselyn Fleming Seen Specialist in Last 12 Months Yes Specialist Seen General Manager Food Orthopedist Primary Language Serbian Customer Experience Consultant Required No Height 162.56 cm Weight 78.925 kg Body Mass Index (BMI) 29.8 Hearing Ability Normal Visual Assist Glasses Dentition Type Teeth, Natural Present Teeth, Missing Barriers to Learning Memory Comment Only has 2 upper teeth, 6 teeth on bottom, multiple loose teeth Hx Anesthesia Reactions No Hx Family Anesthesia Reaction No Hx Malignant Hyperthermia No Hx Blood Transfusions Yes: r/t CABG Hx Blood Transfusion Reaction No Anesthesia Review Requested Yes: Previously reviewed by Anesthesia, scanned to record alcohol intake former Smoking Status Former smoker Tobacco type cigarettes cannabis/marijuana how long ago did patient quit smoking Quit 04/15/97. Smoked x 12 years Substance Use Type marijuana Comment Pt previously advised not to smoke marijuana 24 hours prior to surgery Pain Present Pain Reported Musculoskeletal Symptoms Joint Pain Limited Range of Motion Muscle Spasms Neck Pain Radiating Pain into Limb Tingling History of Falling (Recent or History of No ) Patient is completely paralyzed or No completely immobile Mental Status Oriented to own ability Is patient on oxygen? No Does patient have ARENAS/SOB No Hx Sleep Apnea Yes: Pt has not followed up for CPAP CPAP/BIPAP use prescribed not used Currently Taking a Beta Rasheed Yes: Metoprolol Can You Climb a Flight of Stairs Without No SOB Hx Chest Pain Yes: r/t CAD hx Hx SOB Yes: r/t CAD hx Anti-Coagulant Therapy Warfarin & Plavix-will hold 5 days, start 81mg aspirin day per Cardiol Has a General Manager Food Dr. Brar - last visit 08/20/18 Cardiac Testing Yes: Echo 10/30/17 - EF 30-35%, aortic insufficiency new finding Hx Pacemaker/ICD Yes Pacemaker Rep Required? Yes: Rep notified, pacer form scanned to record and in surg folder for dos Comment All cardiac records scanned to record Diet Type At Home Regular dysphagia No Bladder Pattern Incontinent Incontinent, Stress Urinary Catheter Present No Hx Urinary Self Catheterization No Diabetes No Patient No Hx Drug Resistant Organism Yes: H.pylori Presence of External or Internal Medical Yes: Sternum wires, cardiac Devices stents, ICD Have you traveled outside the [facility] in the last 30 days? Marital Status Lives With spouse Prior Living Arrangements Mobile home Support System Child/Children Friend(s) Spouse Does the Patient Have Assistance After Yes Surgery Patient Discharge Plan Description Return Home Comment Pt advised overnight length of stay per surgeon's office Feels Safe in Current Environment Yes Been Physically Hurt or Threatened By a No Person in Current Environment Do you have thoughts of harming yourself None or others? Are you currently considering suicide? No Do you have a plan to hurt yourself or No Plan others? Do You Have Any Spiritual Beliefs That No May Affect Your HC Choices? Do You Have Any Cultural Practices That No May Affect Your HC Choices? Spiritual Referral None Comment Roman Catholic Who Can We Speak to About Patient's Care Family, friends Identifying Code for Release of Patient Declines to issue Information Health Care Proxy/Next of Kin Khanh ([email or web address] Health Care Proxy Emergency Contact Name Khanh () Emergency Contact Advance Directives? No: Declines further information Power of Sales And Merchandising Representative No Comment PAC instructions previously reviewed with patient
--- NOTE | 2018-10-29 13:18 | PC.NURSE ---
Discharge pt states pain controlled this AM from [place] earlier. pt was eating breakfast this AM and stated the eggs and potatoes were irritating to her throat so she didn't eat them. she did have 2 bottles of ensure and swallowed without issue. Notified INSIDE STEWARD/STEWARDESS and they eval'd pt, cleared INSIDE STEWARD/STEWARDESS. Cleared by PT/OT as well. Did not require additional pain meds, ice to back of neck and shoulders. d/c instructions provided to pt. Aware of f/u apt and to contact MD with any additional questions or concerns. Dressing instructions and soft collar info provided to pt. PIV removed prior to d/c. pt left in w/c with OUTPATIENT PHYSICAL THERAPIST ASSISTANT escort to car with . pt states she took all belongings home with her.
== END 2018-10-29 12:55 | disposition home or self-care (01) | DRG 473 ==
PROVIDERS: Physician Assistant Surgical; Admitting Provider Orthopaedic Surgery Orthopaedic Surgery of the Spine; PCP Nurse Practitioner Family; Visit Provider Orthopaedic Surgery Orthopaedic Surgery of the Spine
PROC: 0RG20A0 Fusion of 2 or more Cervical Vertebral Joints with Interbody Fusion Device, Anterior Approach, Anterior Column, Open Approach (ICD-10-PCS; principal; 2018-10-28 11:15)
DX: M48.02 Spinal stenosis, cervical region (principal); M47.22 Other spondylosis with radiculopathy, cervical region; I25.5 Ischemic cardiomyopathy; I25.10 Atherosclerotic heart disease of native coronary artery without angina pectoris; I10 Essential (primary) hypertension; Z95.810 Presence of automatic (implantable) cardiac defibrillator; Z95.1 Presence of aortocoronary bypass graft; I48.2 Chronic atrial fibrillation; E78.5 Hyperlipidemia, unspecified; Z87.891 Personal history of nicotine dependence; Z79.01 Long term (current) use of anticoagulants; W19.XXXD Unspecified fall, subsequent encounter
CPT/HCPCS: 36415; 72040; 76000; 85014; 85018; 85610; 97161; 97165; 97535; C1776; J0360; J0690; J1100; J1170; J2060; J2405; J2704; J3010